=== PATIENT | female | born 1965 | race Caucasian/White ===

== ENCOUNTER → 2020-09-01 | Outpatient (CLI) | payer BC ==
--- NOTE | 2020-09-01 16:40 | RAD ---
EXAM: Right shoulder sonogram. HISTORY: Palpable lump. TECHNIQUE: Sonographic imaging of the right shoulder at the site of palpable concern was performed. COMPARISON: None. FINDINGS: There is a 1.8 x 0.4 x 1.4 cm circumscribed nonvascular solid nodule at the site of palpabl e concern, the appearance of which favors a lipoma. IMPRESSION: 1.8 cm suspected lipoma within the right shoulder soft tissues at the site of palpable co ncern. Continued clinical follow-up of palpable abnormalities is recommended. Repeat imaging can be p erformed if there is continued concern or change in physical exam findings. Electronically signed by: Jasmin Wong MD (09/01/2020 4:37 PM) [facility]
--- NOTE | 2020-09-01 17:02 | RAD ---
Clinical indications: Thyroid goiter. Findings: The longitudinal and AP and transverse dimensions of the right lobe of the thyroid gland ar e 6.0 cm x 2.0 cm x 2.4 cm respectively. There is a 22 mm heterogeneous isoechoic mass within the mid aspect of the right lobe with a coarse calcification within it. This corresponds to a ACR TI RADS t ype IV lesion; FNA if greater than or equal to 15 mm; follow-up if greater than equal to 10 mm. There fore, FNA is recommended. A tiny isoechoic solid nodule seen within the anterior mid aspect of the ri ght lobe measuring 5 mm. This is an ACR TI RADS type III lesion; FNA if greater than or equal to 25 m m; follow-up if greater than or equal to 15 mm. Therefore, this lesion is considered benign and no fu rther follow-up needed. The longitudinal and AP and transverse dimensions of the left lobe are 4.8 cm x 1.6 cm x 1.9 cm respe ctively. There is an isoechoic solid lesion within the anterior mid aspect measuring 23 mm in greates t dimension. Small punctate foci are seen which may represent calcifications. There is a larger macro calcification seen inferiorly. Therefore, this is considered an ACR TI RADS type IV lesion and FNA is recommended. There is a small hypoechoic nodule within the anterior mid aspect measuring 3 mm consis tent with a small cyst. The isthmus is homogeneous in appearance and measures 2.2 mm in thickness. Impression: Enlarged thyroid gland. Bilateral thyroid nodules. Recommend FNA of both nodules. Reference: ACR thyroid imaging, reporting and data system (TI-RADS): White paper of the ACR TI-RADS c ommittee; J[employer]RNAL OF THE [employer]; volume 14, issue 5, pages 587-595 (August 2016) Electronically signed by: Adam Muñiz MD (09/01/2020 4:59 PM) [id number]
== END ==
LOC: US 14:36
PROVIDERS: ATTEND Family Medicine
DX: R22.31 Localized swelling, mass and lump, right upper limb (principal)
CPT/HCPCS: 76536; 76881

== ENCOUNTER → 2020-10-02 | Outpatient (CLI) | payer BC ==
[~2020-10-02] MED LIST: EPIPEN0.3 MG/0.3 IJ; SERT100T PO
== END ==
LOC: LAB 09:56
PROVIDERS: ATTEND Surgery
DX: Z01.812 Encounter for preprocedural laboratory examination (principal); E04.2 Nontoxic multinodular goiter; Z20.822 Contact with and (suspected) exposure to COVID-19
CPT/HCPCS: U0003; U0005

== ENCOUNTER 2020-10-05 10:32 | Day surgery (SDC) | payer BC ==
[~2020-10-05] VITALS: Ht 165.1 cm; Wt 67.5 kg
[~2020-10-05 10:32] MED LIST changes: +HYDROmorphone 2 MG/ML VIAL IVP PRN; +IV RINGERS,LACTATED 1000ML 1,000 ML IV SCH; +MORPHINE SULFATE 2 MG/ML VIAL. IVP PRN; +PROCHLORPERAZINE 10 MG/2 ML VIAL. IVP PRN; +fentaNYL PF VIAL 100 MCG/2 ML VIAL IVP PRN
[2020-10-05] MEDS ORDERED: LIDOCAINE 1%/EPI 1:100,000 20 ML VIAL. ONE (10:51)
[2020-10-05] MEDS ORDERED: LIDOCAINE 2% PF 5 ML VIAL. ONE (11:40)
[2020-10-05] MEDS ORDERED: ONDANSETRON PF 4 MG/2 ML VIAL. ONE (11:40)
[2020-10-05] MEDS ORDERED: DEXAMETHASONE SOD PHOS 4 MG/ML VIAL ONE (11:40)
[2020-10-05] MEDS ORDERED: fentaNYL PF VIAL 100 MCG/2 ML VIAL ONE (11:40)
[2020-10-05] MEDS ORDERED: KETOROLAC 30 MG/ML VIAL. ONE (11:40)
[2020-10-05] MEDS ORDERED: PROPOFOL 10 MG/ML (20ML) VIAL. IV ONE ×3 (11:40→12:13)
[2020-10-05] MEDS ORDERED: ceFAZolin SODIUM IV Push 1 GM VIAL. IVP ONE (11:45)
[2020-10-05] MEDS ORDERED: ePHEDrine PF IN SALINE 50 MG/10 ML SYRINGE. IV ONE (11:57)
[2020-10-05] MEDS ORDERED: SEVOFLURANE 31 TO 60 MINUTES. IH ONE (12:17)
--- NOTE | 2020-10-05 12:18 | PDOC4 ---
Operative Note Operative Note Operative Note: Preoperative Diagnosis: Right shoulder mass Postoperative Diagnosis: Same Procedure: Excision of right shoulder mass Surgeon: Tim Anesthesia: General EBL: 5 mL Specimen: Right shoulder mass to pathology, 3 x 2 cm Drains: None Complications: None Indication: The patient is a 54-year-old female who was referred due to a right shoulder mass that is symptomatic. She requests excision. The risks of surgery were discussed which include bleeding, infection, recurrence, pain, anesthetic risk, potential need for additional surgery procedure. She understands and would like to proceed. Description: The patient was taken the operating room and placed supine in the o perating table. General anesthesia was performed. The right anterior shoulder was prepped with ChloraPrep and draped in a standard surgical manner. An incision was made directly overlying the mass with a scalpel. Cautery dissection was carried in the subcutaneous tissues. The mass was comprised of lobulated adipose tissue consistent with a lipoma. The mass was fully excised a nd sent to pathology. The mass measured 3 x 2 cm. Hemostasis was achieved with cautery. The skin was approximated with 4-0 Monocryl. A sterile dressing was then applied. The patient tolerated the procedure well and sent to the recovery room in stable condition. At the end of the case all counts were correct. GIULIANO DIAZ MD Oct 05, 2020 12:18
--- NOTE | 2020-10-05 12:20 | DISCH ---
DISCHARGE INSTRUCTIONS Condition on Discharge Condition on Discharge: Stable Activity After Discharge Activity Instructions for Disc: Resume previous activity Wound Incision Care Wound/Incision Care: Other, see below (keep dressing clean and dry X 72 hours, may then remove and shower) Follow-Up Follow up with: Dr Diaz in office in 4 weeks, call for appt [phone] GIULIANO DIAZ MD Oct 05, 2020 12:20
[2020-10-05 12:41] VITALS: BP 121/75
[2020-10-05] MEDS ORDERED: HYDROcodone/APAP 5/325MG 1 TAB TABLET PO ONE (12:45)
--- NOTE | 2020-10-06 18:34 | PATHOLOGY ---
[facility] Accession Number: [id number] . 01 Material submitted: . shoulder - RIGHT SHOULDER MASS. Modifiers: right . 01 Clinician provided ICD-10: R22.30 . 01 Clinical history: . RIGHT SHOULDER MASS RIGHT SHOULDER MASS EXCISION . 02 Diagnosis: Segments of fibroadipose tissue, right shoulder mass excision: - Lipoma. (JPM/db; 10/06/2020) LBQ 10/06/2020 1545 Local . 02 Electronically signed: . Napoleon Marie MD, Pathologist NPI- [id number] . 01 Gross description: . The specimen is received in formalin, labeled "Michelle Kirby, right shoulder mass" is a specimen received as 2 fragments of soft mad[place] yellow, partially encapsulated centrally homogeneous fibrofatty tissue measuring 1.7 x 1 x 0.4 and 2.5 x 1.8 x 1 cm. Steward/Stewardess Second Class sections are submitted A1. ([facility]; 10/05/2020) . THEODORE/THEODORE 10/05/2020 2000 Local . 02 Pathologist provided ICD-10: D17.21 . 02 CPT . 465919 Specimen Comment: A courtesy copy of this report has been sent to [phone] Specimen Comment: [id number] Specimen Comment: Report sent to / DR RAMIREZ Specimen Comment: A duplicate report has been generated due to demographic updates. Performed at: 01 [facility] [address], [place] [id number] MD Steven García MD Phone: [phone] Performed at: 02 [facility] [address] [place], [place] [id number] MD Napoleon Marie MD Phone: [phone]
== END 2020-10-05 13:29 | disposition home or self-care (01) ==
LOC: SURG 10:32
PROVIDERS: ATTEND Surgery
DX: R22.31 Localized swelling, mass and lump, right upper limb (principal); D17.21 Benign lipomatous neoplasm of skin and subcutaneous tissue of right arm; F32.9 Major depressive disorder, single episode, unspecified; Z86.73 Personal history of transient ischemic attack (TIA), and cerebral infarction without residual deficits; Z90.710 Acquired absence of both cervix and uterus; Z98.890 Other specified postprocedural states; Z79.899 Other long term (current) drug therapy
CPT/HCPCS: 23071; 88304; A4364; A4930; A6402; J0690; J1100; J1885; J2405; J2704; J3010; A4452; J3490

== ENCOUNTER → 2020-10-07 | Outpatient (CLI) | payer BC ==
[2020-10-05 12:41] VITALS: BP 121/75
[~2020-10-07] MED LIST changes: -HYDROmorphone 2 MG/ML VIAL IVP PRN; -IV RINGERS,LACTATED 1000ML 1,000 ML IV SCH; +LIDOCAINE 1% Multi-Dose 20 ML VIAL. INJ ONE; -MORPHINE SULFATE 2 MG/ML VIAL. IVP PRN; -PROCHLORPERAZINE 10 MG/2 ML VIAL. IVP PRN; -fentaNYL PF VIAL 100 MCG/2 ML VIAL IVP PRN
--- NOTE | 2020-10-07 11:26 | RAD ---
US FNA BIOPSY ADDITIONAL LESION, US FNA BIOPSY 1ST LESION History:Reason: Right and LT THYROID NODULE / Spl. Instructions: / History: Comparison: Ultrasound September 01, 2020 Procedure: The risks, alternatives, and benefits of the procedure are discussed with the patient. Written inform ed consent is obtained. A time out procedure is performed. Neck prepped and draped in normal sterile fashion. 1% lidocaine was injected into the skin and soft tissue along route to the dominant nodule of the lef t thyroid. 4 separate passes were made with a 22-gauge needle. To and fro movement of the needle was performed in the nodule. Hemostasis is achieved. Post biopsy images obtained without significant hemo rrhage. Additional site was anesthetized overlying the right thyroid overlying the dominant right nodule. 3 s eparate passes were made with a 22-gauge needle. To and fro movement of the needle was performed in t he nodule. The patient experienced lightheadedness and nausea. Additional pass was not performed. Pos tbiopsy images obtained without significant hemorrhage. The patient quickly began to feel better after the procedure. Patient went home without complications . IMPRESSION: 1. Ultrasound guided fine needle aspiration of a right and left thyroid nodules. Electronically signed by: Andrews Jane DO (10/07/2020 11:24 AM) [id number]
--- NOTE | 2020-10-07 11:30 | NUR ---
Pt here for thyroid biopsy. Staff called because pt was lightheaded and dizzy as procedure was concluding. Pt appeared pale and sleepy upon my arrival. Vital signs checked and initial BP 90/53 HR 54. Pt states pressure runs low but this is lower that usual. Serial BPS done as pt was slowly repositioned to a sitting position. BP 110/72 HR 54, pt states she feels better and back to normal. 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 Pt ambulated out with steady gait, family member here to drive. THOM RN
--- NOTE | 2020-10-09 11:17 | PATHOLOGY ---
Note [facility] Accession Number: [id number] TESTS RESULT FLAG UNITS REF RANGE LAB Clinician Provided Cytology Information No. of containers..01 Other (Miscellaneous) Source: LEFT MID THY DIAGNOSIS: LEFT MID THY NEGATIVE FOR MALIGNANT EPITHELIAL CELLS. BETHESDA CATEGORY II. SPECIMEN CONSISTS OF ABUNDANT BENIGN FOLLICULAR CELLS, HEMOSIDERIN-LADEN MACROPHAGES, ABUNDANT COLLOID AND BLOOD. THE PATTERN IS CONSISTENT WITH ADENOMATOID NODULE. COLLOID IS PRESENT. THIS INTERPRETATION INCLUDES EVALUATION OF A CELL BLOCK. NO CLASSIC CYTOLOGIC FEATURES OF PAPILLARY CARCINOMA ARE IDENTIFIED. 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 CLINICAL AND RADIOGRAPHIC CORRELATION IS REQUIRED. PLEASE SEE ALSO THE RIGHT MID THYROID FNA ([phone]). Pathologist ICD10: 02 E04.1 Signed out by: Barbra Chirinos MD, Pathologist NPI- [id number] Performed by: Caden Wiley, Angular Developer ([facility]) Gross description: 30ML, CLEAR COLORLESS, 2 F 6AD /LCS 10/08/2020 0509 Local FLAG LEGEND: L-Low Normal,H-High Normal,LL-Alert Low,HH-Alert High <-Panic Low,>-Panic High,A-Abnormal,AA-Critical Abnormal Performed at: [employer] [facility] [address] [place] [address] Steven García MD, [address] [place] [address] [facility] [address] [address] Barbra Chirinos MD, Specimen Comment: A courtesy copy of this report has been sent to [phone] Specimen Comment: [id number] Specimen Comment: Report sent to / DR RAMIREZ Specimen Comment: A duplicate report has been generated due to demographic updates. Performed at: 01 [facility] [id number] [facility] [address], [place], [place] [id number] MD Steven García MD Phone: [phone]
--- NOTE | 2020-10-09 11:17 | PATHOLOGY ---
Note [facility] Accession Number: [id number] TESTS RESULT FLAG UNITS REF RANGE LAB Clinician Provided Cytology Information No. of containers..01 Other (Miscellaneous) Source: RIGHT MID THY DIAGNOSIS: RIGHT MID THY NEGATIVE FOR MALIGNANT EPITHELIAL CELLS. BETHESDA CATEGORY II. SPECIMEN CONSISTS OF ABUNDANT BENIGN FOLLICULAR CELLS, HEMOSIDERIN-LADEN MACROPHAGES, ABUNDANT COLLOID AND BLOOD. THE PATTERN IS CONSISTENT WITH ADENOMATOID NODULE. COLLOID IS PRESENT. THIS INTERPRETATION INCLUDES EVALUATION OF A CELL BLOCK. NO CLASSIC CYTOLOGIC FEATURES OF PAPILLARY CARCINOMA ARE IDENTIFIED. OF NOTE, THIS IS A SMALL PORTION OF A LARGER LESION AND MAY NOT BE ENTIRELY FOIL SPINNER. CLINIAL AND RADIOGRAPHIC CORRELATION IS REQUIRED. PLEASE SEE ALSO THE LEFT MID THYROID FNA ([id number]). Pathologist ICD10: 02 E04.1 Signed out by: Barbra Chirinos MD, Pathologist NPI- [id number] Performed by: Caden Wiley, Process Engineering Manager ([facility]) Gross description: 30ML, CLEAR COLORLESS, 2 F 4 AD /LCS 10/08/2020 0512 Local FLAG LEGEND: L-Low Normal,H-High Normal,LL-Alert Low,HH-Alert High <-Panic Low,>-Panic High,A-Abnormal,AA-Critical Abnormal Performed at: [employer] [facility] [address] [place] [address] Steven García MD, [address] [place] [address] [facility] [address] [address] Barbra Chirinos MD, Specimen Comment: A courtesy copy of this report has been sent to [phone] Specimen Comment: [id number] Specimen Comment: Report sent to Specimen Comment: Report sent to / DR RAMIREZ Specimen Comment: A duplicate report has been generated due to demographic updates. Performed at: 01 [facility] [address] [facility] [address] [address], [place], [place] [id number] MD Steven García MD Phone: [phone]
== END | disposition home or self-care (01) ==
LOC: US 10:11
PROVIDERS: ATTEND Surgery
DX: E04.2 Nontoxic multinodular goiter (principal); F32.9 Major depressive disorder, single episode, unspecified; Z86.73 Personal history of transient ischemic attack (TIA), and cerebral infarction without residual deficits; Z90.710 Acquired absence of both cervix and uterus; Z98.890 Other specified postprocedural states; Z79.899 Other long term (current) drug therapy
CPT/HCPCS: 10005; 10006